=== PATIENT | female | born 1960 | race African-American/Black ===

== ENCOUNTER 2016-12-17 08:01 | Day surgery (SDC) | payer OTHER ==
[2016-12-16 13:05] VITALS: BMI 40.0
[2016-12-17] MEDS ORDERED: LIDOCAINE HCL/PF 2% SDV 5ML VIAL ONE (08:35)
[2016-12-17] MEDS ORDERED: PROPOFOL 20 ML ONE ×2 (08:35)
[2016-12-17 09:23] VITALS: TEMP 97.5
[2016-12-17 15:01] VITALS: BP 107/63; PULSE 57
== END 2016-12-17 10:15 | disposition home or self-care (01) ==
LOC: JASU-ENDO 08:01
PROVIDERS: ATTEND Internal Medicine Gastroenterology
PROC: 0DBL8ZX Excision of Transverse Colon, Via Natural or Artificial Opening Endoscopic, Diagnostic (ICD-10-PCS; principal; 2016-12-17 09:00)
DX: Z12.11 Encounter for screening for malignant neoplasm of colon (principal); Z86.010 Personal history of colon polyps; D12.3 Benign neoplasm of transverse colon; Z98.0 Intestinal bypass and anastomosis status
CPT/HCPCS: 88305-TC

== ENCOUNTER 2019-03-19 09:34 | Emergency (ER) | payer OTHER ==
[2019-03-19 09:47] VITALS: BP 142/81; PULSE 97; TEMP 98.2; BMI 29.8
[2019-03-19] MEDS ORDERED: SODIUM CHLORIDE 1,000 ML IV STA (10:01)
--- NOTE | 2019-03-19 10:06 | PDOC ---
History of Present Illness - General Chief Complaint: Blood Sugar Problem Stated Complaint: HYPERGLYCEMIA Time Seen by Provider: 03/19/19 09:58 History Source: Patient Exam Limitations: No Limitations - History of Present Illness Initial Comments: 03/19/19 10:26 59-year-old female with history of diabetes presents to ED with complaints of intermittent dizziness since and urinary frequency. 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 Patient also denies fever, chills but states constipation for the past few days. Patient has no complaints of abdominal pain, chest pain, or SOB. Timing/Duration: intermittent Severity: mild Associated Symptoms: reports: loss of appetite, nausea/vomiting Past History - Travel Traveled outside of the country in the last 30 days: No Close contact w/someone who was outside of country & ill: No - Past Medical History Allergies/Adverse Reactions: Allergies Allergy/AdvReac Type Severity Reaction Status Date / Time No Known Allergies Allergy Verified 03/19/19 09:36 Home Medications: Ambulatory Orders Insulin Detemir [Levemir Flextouch] 40 unit SQ AM 11/10/14 Amlodipine Besylate [Norvasc -] 10 mg PO HS 03/18/15 Cholecalciferol (Vitamin D3) [Vitamin D3] 5,000 unit PO DAILY 12/16/16 Metformin HCl [Glucophage] 1,000 mg PO DAILY 12/16/16 Losartan Potassium [Cozaar] 100 mg PO DAILY 03/19/19 Anemia: No Asthma: No Cancer: No Cardiac Disorders: No CVA: No COPD: No CHF: No Dementia: No Diabetes: Yes GI Disorders: No Disorders: No HTN: Yes Hypercholesterolemia: Yes Kidney Stones: Yes Liver Disease: No Seizures: No Thyroid Disease: Yes (GOITER) - Surgical History Abdominal Surgery: Yes (RECONSTRUCTION SMALL INTESTINE s/p SCAR TISSUE) Appendectomy: No Cardiac Surgery: No Cholecystectomy: Yes Lung Surgery: No Neurologic Surgery: No Orthopedic Surgery: (RIGHT SHOULDER REPAIR) Other Surgical History: 03/19/19 10:05 left nephrectomy 1996 - Immunization History Immunization Up to Date: Yes - Suicide/Smoking/Psychosocial Hx Smoking Status: No Smoking History: Unknown if ever smoked Number of Cigarettes Smoked Daily: 0 Hx Alcohol Use: No Drug/Substance Use Hx: No Substance Use Type: None Hx Substance Use Treatment: No Patient Lives Alone: No Lives with/in: spouse/SO Review of Systems - Review of Systems Able to Perform ROS?: No Is the patient limited Vietnamese proficient: No Constitutional: Yes: Weakness HEENTM: No: Symptoms Reported Respiratory: No: Symptoms reported Cardiac (ROS): Yes: Lightheadedness ABD/GI: Yes: Constipated : Yes: Frequency Musculoskeletal: No: Symptoms Reported Integumentary: No: Symptoms Reported Neurological: No: Symptoms reported Hematologic/Lymphatic: No: Symptoms Reported *Physical Exam - Vital Signs Last Vital Signs Temp Pulse Resp BP Pulse Ox 98.2 F 97 H 17 142/81 98 03/19/19 09:41 03/19/19 09:41 03/19/19 09:41 03/19/19 09:41 03/19/19 09:41 - Physical Exam General Appearance: Yes: Nourished, Appropriately Dressed. No: Apparent Distress HEENT: positive: EOMI, VISHNU, TMs Normal, Pharynx Normal. negative: Pale Conjunctivae Neck: positive: Supple Respiratory/Chest: positive: Lungs Clear, Normal Breath Sounds. negative: Respiratory Distress, Accessory Muscle Use Cardiovascular: positive: Regular Rhythm, Regular Rate. negative: Murmur Gastrointestinal/Abdominal: positive: Soft, Tenderness (mid suprapubic) Musculoskeletal: negative: CVA Tenderness Extremity: positive: Normal Inspection Integumentary: positive: Normal Color, Warm, Moist Neurologic: positive: Motor Strength 5/5 (ambulatory) Heart Score/ECG Review - ECG Intrepretation Rhythm: Regular Rhythm (rate84, intervals regular. Mild LVH) ED Treatment Course - LABORATORY CBC & Chemistry Diagram: 03/19/19 10:28 03/19/19 10:28 Medical Decision Making - Medical Decision Making 03/19/19 10:30 Chief complaint: Intermittent lightheadedness, urinary frequency and mild nausea. Patient also states glucose have been averaging in the 300s. Patient is followed by Dr. Sifuentes. Exam: Mid suprapubic tenderness on exam. Vital signs stable. Plan: Labs, urine, IV fluids , EKG 03/19/19 13:28 Laboratory Tests 03/19/19 03/19/19 03/19/19 10:28 10:28 11:40 WBC 7.7 Hgb 11.8 Hct 36.7 Absolute Neuts (auto) 5.0 Sodium 136 Potassium 3.9 Chloride 101 Carbon Dioxide 31 Anion Gap 3 L BUN 14.1 Creatinine 0.8 Random Glucose 293 H Calcium 9.1 Total Bilirubin 0.2 AST 17 ALT 21 Alkaline Phosphatase 122 H Total Protein 7.2 Albumin 3.7 Ur Specific [place] 1.009 L Urine Bilirubin Negative Ur Leukocyte Esterase 1+ H Urine WBC (Auto) 4 Urine RBC (Auto) 2 Urine Casts (Auto) 1 Pt will be given copy of labs and go to her PCPs office today for her appointment that was scheduled at 3 PM. Pt states feeling better after receiving IVF. *DC/Admit/Observation/Transfer Diagnosis at time of Disposition: Diabetes - Discharge Dispostion Disposition: HOME Condition at time of disposition: Improved - Referrals Referrals: Casey Sifuentes MD [Primary Care Provider] - - Patient Instructions Printed Discharge Instructions: DI for Hyperglycemia -- Adult Additional Instructions: Please go directly to your primary care physician's office and bring copy of your labs with you. If symptoms worsen despite above findings, please return to the ED for further workup. - Post Discharge Activity
[2019-03-19 10:47] LABS: BASO % 1.1 % (0-2.0); EOS % 2.1 % (0-4.5); HEMATOCRIT 36.7 % (32.4-45.2); HEMOGLOBIN 11.8 GM/dL (10.7-15.3); LYMPH % 25.4 % (8-40); MCH 22.5 pg (25.7-33.7); MEAN CELL VOLUME 70.3 fl (80-96); MEAN PLT VOLUME 9.1 fl (7.5-11.1); MONO % 6.3 % (3.8-10.2); NEUT % 65.1 % (42.8-82.8); PLATELET COUNT 214 K/MM3 (134-434); RBC 5.22 M/mm3 (3.60-5.2); WHITE BLOOD COUNT 7.7 K/mm3 (4.0-10.0)
[2019-03-19 11:26] LABS: ALBUMIN 3.7 g/dl (3.4-5.0); BILIRUBIN,TOTAL 0.2 mg/dL (0.2-1); BLOOD UREA NITROGEN 14.1 mg/dL (7-18); CALCIUM 9.1 mg/dL (8.5-10.1); CREATININE 0.8 mg/dL (0.55-1.3); POTASSIUM 3.9 mmol/L (3.5-5.1); TOT PROT 7.2 g/dl (6.4-8.2)
[2019-03-19 13:17] LABS: EPI CELLS 2.8 /HPF (0-5/HPF); HYALINE CASTS 1 /lpf (0-8); URINE APPEARANCE CLEAR; URINE BACTERIA 132.9 /hpf (NEGATIVE); URINE BILIRUBIN NEGATIVE (NEGATIVE); URINE COLOR YELLOW; URINE GLUCOSE (UA) NEGATIVE (NEGATIVE); URINE KETONE NEGATIVE (NEGATIVE); URINE LEUK ESTERASE 1+ (NEGATIVE); URINE NITRITE NEGATIVE (NEGATIVE); URINE PROTEIN NEGATIVE (NEGATIVE); URINE RBC 2 /hpf (0-4); URINE UROBILINOGEN 0.2 mg/dL (0.2-1.0); URINE WBC 4 /hpf (0-5)
--- NOTE | 2019-03-19 14:36 | EKG ---
Test Reason : Blood Pressure : / mmHG Vent. Rate : 054 BPM Atrial Rate : 054 BPM P-R Int : 206 ms QRS Dur : 122 ms QT Int : 496 ms P-R-T Axes : 046 -37 002 degrees QTc Int : 470 ms SINUS BRADYCARDIA LEFT AXIS DEVIATION LEFT VENTRICULAR HYPERTROPHY WITH QRS WIDENING ABNORMAL ECG WHEN COMPARED WITH ECG OF 13-JUN-2015 17:14, VENT. RATE HAS DECREASED BY 29 BPM T WAVE INVERSION NOW EVIDENT IN INFERIOR LEADS NONSPECIFIC T WAVE ABNORMALITY, IMPROVED IN LATERAL LEADS Confirmed by FRANSISCO KILGORE MD ([id number]) on 03/19/2019 2:36:20 PM Referred By: Confirmed By:FRANSISCO KILGORE MD
== END 2019-03-19 13:44 | disposition home or self-care (01) ==
LOC: JER 09:34
PROC: 3E0337Z Introduction of Electrolytic and Water Balance Substance into Peripheral Vein, Percutaneous Approach (ICD-10-PCS; principal; 2019-03-19)
DX: E11.65 Type 2 diabetes mellitus with hyperglycemia (principal); Z79.84 Long term (current) use of oral hypoglycemic drugs; I10 Essential (primary) hypertension; E78.00 Pure hypercholesterolemia, unspecified; E04.9 Nontoxic goiter, unspecified; Z87.442 Personal history of urinary calculi; Z90.5 Acquired absence of kidney
CPT/HCPCS: 36415; 80053; 81003; 85025; 87086; 93005; 93010; 99282-25; J7030